=== PATIENT | male | born 1960 | race American Indian/Alaskan Native ===

== ENCOUNTER 2024-07-16 11:25 | Day surgery (SDC) | payer MEDICARE, SELFPAY ==
[2024-07-13 14:23] VITALS: BMI 30.7
[2024-07-16] VITALS (9 sets, daily range): BP systolic 99–127; BP diastolic 62–78; PULSE 50–85; RESP 8–19; TEMP 36.4–36.7; O2SAT 96–100; BMI 32.2
[2024-07-16] MEDS: DiphenhydrAMINE INJ 50 MG/ML VIAL 25 MG IV (13:37)
[2024-07-16] MEDS: ONDANSETRON INJ 2 MG/ML INJ 2 ML 4 MG IV (13:37)
[2024-07-16] MEDS: MIDAZOLAM INJ 1 MG/ML VIAL 2 ML (ASD USE ONLY) 2 MG IV (13:45)
[2024-07-16] MEDS: fentaNYL CIT INJ 50 mCg/ML AMP 2ML (ASD USE ONLY) IV (13:45)
--- NOTE | 2024-07-16 13:57 | SUR.PHASEII ---
[id number] Patient arrived to recovery, report received from Marlee JIMENEZ
--- NOTE | 2024-07-16 14:48 | SUR.PHASEII ---
[id number] Patient meets discharge criteria from recovery, awake and alert, breathing unlabored, vital signs stable, denies pain, patient drinking water; denies nausea, patient able to dress himself into his clothing, discharge instructions given to patient and patients , signed discharge instructions. Patient given all his belongings prior to discharge, transported via wheelchair and left in a private vehicle.
== END 2024-07-16 14:48 | disposition home or self-care (01) ==
PROVIDERS: PCP Physician Assistant; Referring Provider Specialist; Visit Provider Specialist
PROC: 0DBE8ZX Excision of Large Intestine, Via Natural or Artificial Opening Endoscopic, Diagnostic (ICD-10-PCS; CPT 45380; principal; 2024-07-16 12:45)
DX: Z12.11 Encounter for screening for malignant neoplasm of colon (principal); K64.9 Unspecified hemorrhoids; K57.30 Diverticulosis of large intestine without perforation or abscess without bleeding
CPT/HCPCS: 45378; J1200; J2250; J2405; J3010

== ENCOUNTER → 2024-07-25 | Outpatient (CLI) | payer MEDICARE, SELFPAY ==
[2024-07-30 13:49] LABS: PSA, Free 0.63 ng/mL; PSA, Total 2.6 ng/mL (< OR = 4.0)
[2024-07-31 07:07] LABS: PSA, % Free 24 % (calc) (>25)
== END | disposition home or self-care (01) ==
PROVIDERS: PCP Physician Assistant; Referring Provider Physician Assistant; Visit Provider Physician Assistant
DX: R97.20 Elevated prostate specific antigen [PSA] (principal)
CPT/HCPCS: 36415; 84153; 84154